=== PATIENT | male | born 1995 | race Caucasian/White ===

== ENCOUNTER 2022-09-03 15:50 | Emergency (ER) | payer OTHER ==
[~2022-09-03] VITALS: Ht 185.4 cm; Wt 90.7 kg
[2022-09-03] MEDS ORDERED: ONDANSETRON ODT4 MG PO (16:55)
[2022-09-03] MEDS ORDERED: NAPROSYN500 MG PO (16:55)
[2022-09-03 17:01] VITALS: BP 120/80
== END 2022-09-03 17:02 | disposition home or self-care (01) ==
LOC: ED 15:50
DX: B34.9 Viral infection, unspecified (principal); I10 Essential (primary) hypertension; Z88.1 Allergy status to other antibiotic agents
CPT/HCPCS: 87502; 87651; 96372; 99283; A9270; C9803; J1885; U0002